=== PATIENT | female | born 1945 | race African-American/Black ===

== ENCOUNTER 2023-03-08 09:47 | Emergency (ER) | payer OTHER ==
[~2023-03-08] VITALS: Ht 165.1 cm; Wt 95.3 kg
[2023-03-08] MEDS ORDERED: ELIQUIS5 MG PO (10:01)
[2023-03-08] MEDS ORDERED: TIADYLT ER180 MG PO (10:01)
[2023-03-08] MEDS ORDERED: GLUMETZA500 MG PO (10:01)
[2023-03-08] MEDS ORDERED: ZESTRIL20 MG PO (10:02)
== END 2023-03-08 16:47 | disposition home or self-care (01) ==
LOC: ER 09:48
DX: M25.462 Effusion, left knee (principal); E11.9 Type 2 diabetes mellitus without complications; Z79.84 Long term (current) use of oral hypoglycemic drugs; I10 Essential (primary) hypertension